=== PATIENT | male | born 1960 | race Caucasian/White ===

== ENCOUNTER → 2025-05-02 | Outpatient (CLI) | payer MEDICARE, BC, SELFPAY ==
--- NOTE | 2025-05-02 17:02 | CT_ITS ---
PROCEDURE: SOFT TISSUE NECK WITH CONTRAST 05/02/2025 REASON FOR EXAM: BILATERAL PAROTID MASS Left-sided neck pain. TECHNIQUE: SOFT TISSUE NECK WITH CONTRAST CONTRAST: Isovue-300 VOLUME: 75 mL One or more dose reduction techniques were used (e.g., Automated exposure control, adjustment of the mA and/or kV according to patient size, use of iterative reconstruction technique). RADIATION DOSE SUMMARY: CTDlvol: 17.52 mGy DLP: 617.15 mGycm COMPARISON: None FINDINGS: Airway: Midline and patent. Salivary glands: There is a 1 cm x 1 cm well-defined enhancing rounded soft tissue mass in the anterior superior aspect of the left parotid gland. Biopsy recommended. Lymph nodes: Benign-appearing submental lymph nodes. Thyroid: Unremarkable Vasculature: Unremarkable Orbits: Unremarkable at visualized levels. Paranasal sinuses and mastoids: Grossly clear at visualized levels. Lung apices: Clear. Upper mediastinum: Visualized mediastinum is unremarkable. Bones: Multilevel degenerative changes of the spine. Other: CT/Soft Tissue Neck WITH Contrast IMPRESSION: 1 cm x 1 cm well-defined enhancing rounded soft tissue nodule in the anterior a spect of the left parotid gland. Biopsy recommended. Reading Location: [place] [id number]
--- NOTE | 2025-05-02 17:02 | CT_ITS ---
PROCEDURE: SOFT TISSUE NECK WITH CONTRAST 05/02/2025 REASON FOR EXAM: BILATERAL PAROTID MASS Left-sided neck pain. TECHNIQUE: SOFT TISSUE NECK WITH CONTRAST CONTRAST: Isovue-300 VOLUME: 75 mL One or more dose reduction techniques were used (e.g., Automated exposure control, adjustment of the mA and/or kV according to patient size, use of iterative reconstruction technique). RADIATION DOSE SUMMARY: CTDlvol: 17.52 mGy DLP: 617.15 mGycm COMPARISON: None FINDINGS: Airway: Midline and patent. Salivary glands: There is a 1 cm x 1 cm well-defined enhancing rounded soft tissue mass in the anterior superior aspect of the left parotid gland. Biopsy recommended. Lymph nodes: Benign-appearing submental lymph nodes. Thyroid: Unremarkable Vasculature: Unremarkable Orbits: Unremarkable at visualized levels. Paranasal sinuses and mastoids: Grossly clear at visualized levels. Lung apices: Clear. Upper mediastinum: Visualized mediastinum is unremarkable. Bones: Multilevel degenerative changes of the spine. Other: CT/Soft Tissue Neck WITH Contrast IMPRESSION: 1 cm x 1 cm well-defined enhancing rounded soft tissue nodule in the anterior a spect of the left parotid gland. Biopsy recommended. Reading Location: [place] [id number]
== END | disposition home or self-care (01) ==
LOC: CT 16:51
PROVIDERS: PCP Nurse Practitioner Primary Care; Referring Provider Otolaryngology; Visit Provider Otolaryngology
DX: R22.1 Localized swelling, mass and lump, neck (principal)
CPT/HCPCS: 70491; Q9967